=== PATIENT | female | born 1980 | race Caucasian/White ===

== ENCOUNTER 2017-11-02 14:14 | Emergency (ER) | payer OTHER, SELFPAY ==
[2017-11-02 14:14] VITALS: BMI 38.7
[2017-11-02 14:24] VITALS: BP 116/78; PULSE 88; RESP 18; TEMP 98.4; O2SAT 98
--- NOTE | 2017-11-02 14:49 | ED PDOC ---
HPI: General Adult Time Seen by Provider: 11/02/17 14:25 Chief Complaint (Nursing): Weakness/Neurological Deficit Chief Complaint (Provider): Dizziness, weakness, and numbness History Per: Patient History/Exam Limitations: no limitations Onset/Duration Of Symptoms: Days Current Symptoms Are (Timing): Still Present Additional Complaint(s): 37 year old female presents to the emergency department for left arm and face numbness that started on 10/28/2017, while she was cleaning her house. Associated with feeling of weakness on the left side of her neck as well as dizziness. Denies pain, trauma, or shortness of breath. Patient was seen at [facility] in [place], [place] and underwent labs and magnetic resonance imaging (MRI). Patient was told she has disc disease and was given instructions for paresthesias but no medications. She then saw her primary care doctor yesterday, 11/01/2017, who then prescribed her Antivert for her dizziness and advised for a follow-up appointment with a neurologist. Patient presents today for persistent symptoms of dizziness and numbness to her left arm and face. She did not take appropriate dose of Antivert (only half of a pill) because she was afraid she was going to become sleepy and has to take care of her three year old. PMD: Dr. Howe ([place] in [place], [place]) Past Medical History Reviewed: Historical Data, Nursing Documentation, Vital Signs Vital Signs: Last Vital Signs Temp 98.4 F 11/02/17 14:20 Pulse 88 11/02/17 14:20 Resp 18 11/02/17 14:20 BP 116/78 11/02/17 14:20 Pulse Ox 98 11/02/17 16:36 - Medical History PMH: No Chronic Diseases - Surgical History Surgical History: Appendectomy - Family History Family History: States: Unknown Family Hx - Social History Current smoker - smoking cessation education provided: No Alcohol: None Drugs: Denies - Home Medications Home Medications: Ambulatory Orders Medication Instructions Recorded Bacitracin 1 ea TOP TID #0 fp 07/11/14 Ferrous Sulfate [Feosol] 324 mg PO BID #0 ect 07/11/14 Naproxen [Naprosyn] 1 tab PO BID PRN #30 tab 11/02/17 - Allergies Allergies/Adverse Reactions: Allergies Allergy/AdvReac Type Severity Reaction Status Date / Time No Known Allergies Allergy Verified 06/20/14 13:01 Review of Systems ROS Statement: Except As Marked, All Systems Reviewed And Found Negative (As per HPI, otherwise negative) Constitutional: Negative for: Other (Pain or trauma) Respiratory: Negative for: Shortness of Breath Neurological: Positive for: Weakness (Left side of her neck), Numbness (Left arm and face numbness), Dizziness Physical Exam - Reviewed Nursing Documentation Reviewed: Yes Vital Signs Reviewed: Yes - Physical Exam Appears: Positive for: Non-toxic, No Acute Distress Head Exam: Positive for: ATRAUMATIC, NORMOCEPHALIC Skin: Positive for: Warm, Dry Eye Exam: Positive for: EOMI, PERRL ENT: Negative for: Pharyngeal Erythema, Tonsillar Exudate Neck: Positive for: Painless ROM, Supple. Negative for: Pain On Movement Of Neck Cardiovascular/Chest: Positive for: Regular Rate, Rhythm, Chest Non Tender. Negative for: Murmur Respiratory: Positive for: Normal Breath Sounds. Negative for: Respiratory Distress Gastrointestinal/Abdominal: Positive for: Soft. Negative for: Tenderness Back: Positive for: Normal Inspection. Negative for: Decreased ROM Extremity: Positive for: Normal ROM. 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 Strength 5/5 in bilateral upper extremities), Cerebellar Tests ( normal), Gait (normal). Negative for: Aphasia, Facial Droop - ECG ECG Rhythm: Positive for: Normal QRS, Normal ST Segment, Sinus Rhythm (74 bpm), Nonspecific Changes. Negative for: ST/T Changes O2 Sat by Pulse Oximetry: 98 (RA) Pulse Ox Interpretation: Normal Medical Decision Making Medical Decision Making: Time: 1441 Initial Impression: Paresthesias Initial Plan: --EKG --Urine preg --Cyclobenzaprine 10 mg PO --Toradol 30 mg IM --Reevaluation Obtained MRI results from [facility] in [place]. No emergently significant findings on MRI brain and cervical spine. DW pt findings. Time: 1616 --Chest pain FINDINGS: LUNGS: No active pulmonary disease. PLEURA: No significant pleural effusion identified. No pneumothorax appearent. CARDIOVASCULAR: Normal. OSSEOUS STRUCTURES: Minor multilevel degenerative spondylosis of the thoracic spine. VISAULIZED UPPER ABDOMEN: Normal. OTHER FINDINGS: None. Time: 1620 --Patient is stable for discharge and will be sent home with Rx of Naproxen. Clinical Impression: Arm paresthesia, left. Facial paresthesia. Scribe Attestation: Documented by Luci Garcia, acting as a scribe for Susan Shultz MD. Provider Scribe Attestation: All medical record entries made by the Scribe were at my direction and personally dictated by me. I have reviewed the chart and agree that the record accurately reflects my personal performance of the history, physical exam, medical decision making, and the department course for this patient. I have also personally directed, reviewed, and agree with the discharge instructions and disposition. Disposition - Clinical Impression Clinical Impression: Arm paresthesia, left, Facial paresthesia - Patient ED Disposition Is Patient to be Admitted: No Counseled Patient/Family Regarding: Diagnosis, Need For Followup - Disposition Referrals: [facility] [Outside] - 11/09/17 Disposition: Routine/Home Disposition Time: 16:20 Condition: GOOD Additional Instructions: SEAN MEDICAMENTO DIARIO POR SUSAN SEMANA Y VISITA A LA [facility] PROXIMA SEMANA A CHEQAR DE NUEVO Prescriptions: Naproxen [Naprosyn] 1 tab PO BID PRN #30 tab PRN Reason: Pain Instructions: Herniated Disc, Radiculopathy (DC) Forms: [employer] (Uzbek) Print Language: ANGUILLAN
--- NOTE | 2017-11-02 16:18 | RAD ---
HISTORY: Left arm paresthesia. COMPARISON: Comparison chest dated 07/06/2014 TECHNIQUE: Chest PA and lateral FINDINGS: LUNGS: No active pulmonary disease. PLEURA: No significant pleural effusion identified. No pneumothorax apparent. CARDIOVASCULAR: Normal. OSSEOUS STRUCTURES: Minor multilevel degenerative spondylosis of the thoracic spine VISUALIZED UPPER ABDOMEN: Normal. OTHER FINDINGS: None. IMPRESSION: No active disease.
--- NOTE | 2017-11-02 18:50 | CARD ---
APPROVED REPORT EKG Measurement Heart [id number] <Conclusion> Normal sinus rhythm Normal ECG
== END 2017-11-02 16:30 | disposition home or self-care (01) ==
LOC: H.ER 14:14
DX: R20.2 Paresthesia of skin (principal)
CPT/HCPCS: 71046; 81025; 93005; 96372; 99284; J1885

== ENCOUNTER 2018-01-18 22:12 | Emergency (ER) | payer OTHER ==
[2018-01-18 22:12] VITALS: BMI 38.7
[2018-01-18 22:37] VITALS: BP 123/83; PULSE 91; RESP 18; TEMP 98.8; O2SAT 97
--- NOTE | 2018-01-18 23:58 | ED PDOC ---
HPI: Female Pain Time Seen by Provider: 01/18/18 22:40 Chief Complaint (Nursing): Female Genitourinary Chief Complaint (Provider): Dysuria, suprapubic cramping during urination Past Medical History Vital Signs: Last Vital Signs Temp 98.8 F 01/18/18 22:33 Pulse 91 H 01/18/18 22:33 Resp 18 01/18/18 22:33 BP 123/83 01/18/18 22:33 Pulse Ox 97 01/18/18 22:33 - Surgical History Surgical History: Appendectomy - Family History Family History: States: Unknown Family Hx - Home Medications Home Medications: Ambulatory Orders Medication Instructions Recorded Bacitracin 1 ea TOP TID #0 fp 07/11/14 Ferrous Sulfate [Feosol] 324 mg PO BID #0 ect 07/11/14 Naproxen [Naprosyn] 1 tab PO BID PRN #30 tab 11/02/17 Ciprofloxacin [Cipro] 500 mg PO BID #10 tab 01/18/18 - Allergies Allergies/Adverse Reactions: Allergies Allergy/AdvReac Type Severity Reaction Status Date / Time No Known Allergies Allergy Verified 01/18/18 22:33 - ECG O2 Sat by Pulse Oximetry: 97 Disposition - Clinical Impression Clinical Impression: UTI (urinary tract infection) - Patient ED Disposition Is Patient to be Admitted: No Counseled Patient/Family Regarding: Diagnosis, Need For Followup, Rx Given - Disposition Disposition: Routine/Home Disposition Time: 23:56 Condition: GOOD Prescriptions: Ciprofloxacin [Cipro] 500 mg PO BID #10 tab Instructions: Urinary Tract Infection, Adult (DC) Print Language: CYPRIOT
--- NOTE | 2018-01-19 19:16 | ED PDOC ---
HPI: Female Pain Time Seen by Provider: 01/18/18 22:40 Chief Complaint (Nursing): Female Genitourinary Chief Complaint (Provider): Dysuria, suprapubic cramping during urination History Per: Patient History/Exam Limitations: no limitations Onset/Duration Of Symptoms: Days (Began last night ) Current Symptoms Are (Timing): Still Present Severity: Mild Pain Scale Rating Of: 4 Quality Of Discomfort: Cramping Additional Complaint(s): 37 yo female with no medical problems presents with burning on urination and cramping sensation in the suprapubic area when urinating since last night. PT states she also thinks there is some blood in her urine. Pt denies fever/ chills. No N/V. Pt without back pain. No vaginal discharge. Past Medical History Reviewed: Historical Data, Nursing Documentation, Vital Signs Vital Signs: Last Vital Signs Temp 98.8 F 01/18/18 22:33 Pulse 91 H 01/18/18 22:33 Resp 18 01/18/18 22:33 BP 123/83 01/18/18 22:33 Pulse Ox 97 01/18/18 23:58 - Medical History PMH: No Chronic Diseases - Surgical History Surgical History: Appendectomy - Family History Family History: States: Unknown Family Hx - Living Arrangements Living Arrangements: With Family - Social History Current smoker - smoking cessation education provided: No Alcohol: None Drugs: Denies - Home Medications Home Medications: Ambulatory Orders Medication Instructions Recorded Bacitracin 1 ea TOP TID #0 fp 07/11/14 Ferrous Sulfate [Feosol] 324 mg PO BID #0 ect 07/11/14 Naproxen [Naprosyn] 1 tab PO BID PRN #30 tab 11/02/17 Ciprofloxacin [Cipro] 500 mg PO BID #10 tab 01/18/18 - Allergies Allergies/Adverse Reactions: Allergies Allergy/AdvReac Type Severity Reaction Status Date / Time No Known Allergies Allergy Verified 01/18/18 22:33 Review of Systems ROS Statement: Except As Marked, All Systems Reviewed And Found Negative Constitutional: Negative for: Fever, Chills Genitourinary Female: Positive for: Dysuria, Hematuria, Pelvic Pain Physical Exam - Reviewed Nursing Documentation Reviewed: Yes Vital Signs Reviewed: Yes - Physical Exam Appears: Positive for: Well, Non-toxic, No Acute Distress Head Exam: Positive for: ATRAUMATIC, NORMAL INSPECTION, NORMOCEPHALIC Skin: Positive for: Normal Color, Warm, DRY Eye Exam: Positive for: Normal appearance ENT: Positive for: Normal ENT Inspection Neck: Positive for: Normal, Painless ROM Cardiovascular/Chest: Positive for: Regular Rate, Rhythm Respiratory: Positive for: CNT, Normal Breath Sounds Gastrointestinal/Abdominal: Positive for: Normal Exam, Soft. Negative for: Tenderness Back: Positive for: Normal Inspection Extremity: Positive for: Normal ROM Neurologic/Psych: Positive for: Alert, Oriented - ECG O2 Sat by Pulse Oximetry: 97 Medical Decision Making Medical Decision Making: (+) leuks and blood in urine. Disposition - Clinical Impression Clinical Impression: UTI (urinary tract infection) - Disposition Disposition: Routine/Home Disposition Time: 23:56 Condition: GOOD Prescriptions: Ciprofloxacin [Cipro] 500 mg PO BID #10 tab Instructions: Urinary Tract Infection, Adult (DC) Forms: [facility] (Romansh) Print Language: AMERICAN
== END 2018-01-19 00:02 | disposition home or self-care (01) ==
LOC: H.ER 22:12
DX: N39.0 Urinary tract infection, site not specified (principal)

== ENCOUNTER 2018-02-17 23:15 | Emergency (ER) | payer OTHER ==
[2018-02-17 23:15] VITALS: BMI 38.7
[2018-02-17 23:37] VITALS: TEMP 98.6; O2SAT 100
[2018-02-17] MEDS ORDERED: Simethicone 80 mg Chewtab PO STA (23:57)
--- NOTE | 2018-02-18 00:24 | ED PDOC ---
HPI: Abdomen Time Seen by Provider: 02/17/18 23:49 Chief Complaint (Nursing): Abdominal Pain Chief Complaint (Provider): Abdominal Pain History Per: Patient History/Exam Limitations: no limitations Onset/Duration Of Symptoms: Days (x3) Outside of [place] travel?: No Current Symptoms Are (Timing): Still Present Context: Other (Menses) Location Of Pain/Discomfort: Diffuse Quality Of Discomfort: Gas. denies: Burning Associated Symptoms: denies: Fever, Chills, Nausea, Vomiting, Urinary Symptoms Exacerbating Factors: Food Additional Complaint(s): 37 year old female presents to ED with complaints of abdominal pain and bloating x3 days and has no past medical history. Patient notes that she wants to pass gas but is unable to. Notes that pain is diffuse and worsens with eating. (-) urinary symptoms, vaginal bleed/discharge, fever, chills, nausea, or vomiting. PCP: None Past Medical History Reviewed: Historical Data, Nursing Documentation, Vital Signs Vital Signs: Last Vital Signs Temp 98.6 F 02/17/18 23:35 Pulse 83 02/18/18 02:42 Resp 20 02/18/18 02:42 BP 114/70 02/18/18 02:42 Pulse Ox 100 02/18/18 02:42 - Medical History PMH: No Chronic Diseases - Surgical History Surgical History: Appendectomy, - Family History Family History: States: Unknown Family Hx - Social History Drugs: Denies - Home Medications Home Medications: Ambulatory Orders Medication Instructions Recorded Bacitracin 1 ea TOP TID #0 fp 07/11/14 Ferrous Sulfate [Feosol] 324 mg PO BID #0 ect 07/11/14 Naproxen [Naprosyn] 1 tab PO BID PRN #30 tab 11/02/17 Ciprofloxacin [Cipro] 500 mg PO BID #10 tab 01/18/18 Nitrofurantoin Macrocrystals 100 mg PO BID #14 cap 01/21/18 [Macrobid] Docusate Sodium [Dulcolax Stool 100 mg PO BID #12 capsule 02/18/18 Softener] - Allergies Allergies/Adverse Reactions: Allergies Allergy/AdvReac Type Severity Reaction Status Date / Time No Known Allergies Allergy Verified 02/17/18 23:31 Review of Systems ROS Statement: Except As Marked, All Systems Reviewed And Found Negative Constitutional: Negative for: Fever, Chills Gastrointestinal: Positive for: Abdominal Pain. Negative for: Nausea, Vomiting Genitourinary Female: Negative for: Dysuria, Frequency, Incontinence, Hematuria , Vaginal Discharge, Vaginal Bleeding Physical Exam - Reviewed Nursing Documentation Reviewed: Yes Vital Signs Reviewed: Yes - Physical Exam Appears: Positive for: Non-toxic, No Acute Distress Skin: Positive for: Normal Color, Warm, Dry Neck: Positive for: Normal, Painless ROM, Supple Cardiovascular/Chest: Positive for: Regular Rate, Rhythm. Negative for: Murmur Respiratory: Positive for: Normal Breath Sounds. Negative for: Respiratory Distress Gastrointestinal/Abdominal: Positive for: Soft, Tenderness (minimal TTP diffusely). Negative for: Normal Exam, Mass, Guarding, Rebound Extremity: Positive for: Normal ROM. Negative for: Deformity Neurologic/Psych: Positive for: Alert, Oriented. Negative for: Motor/Sensory Deficits - ECG O2 Sat by Pulse Oximetry: 100 (RA) Pulse Ox Interpretation: Normal Medical Decision Making Medical Decision Makin Initial impression: likely gas, less likely SBO v colitis v diverticulitis Initial plan: Patient is well-appearing and has normal vital signs. Will do XR obstructive series to check bowel gas patterns and will provide medication for symptom relief. * UPreg * UDip * XR OBSTRUCTIVE SERIES * Simethicone 80mg PO * Re-eval 0029 XR FINDINGS: Lungs: Unremarkable. No consolidation. Pleural space: Unremarkable. No pneumothorax. Heart: Unremarkable. No cardiomegaly. Mediastinum: Unremarkable. Intraperitoneal space: No free air. Gastrointestinal tract: Diverticulosis. No dilation. Organs: Unremarkable. Bones/joints: Unremarkable. Soft tissues: Right lower quadrant postoperative surgical clips. IMPRESSION: No acute findings. 0143 Upon re-evaluation, patient notes continuation of symptoms. Will provide medication for stool. * Lactulose 20mg PO * Phosphate Enema 135 mL ND * Re-eval 230 PAtient feeling much better after bowel movement. Advised to followup with PMD. Return precautions given. Scribe Attestation: Documented by Diana Arredondo acting as a scribe for Moiz Olivera MD. Scribstephen Attestation: All medical record entries made by the Scribe were at my direction and personally dictated by me. I have reviewed the chart and agree that the record accurately reflects my personal performance of the history, physical exam, medical decision making, and the department course for this patient. I have also personally directed, reviewed, and agree with the discharge instructions and disposition. Disposition - Clinical Impression Clinical Impression: Constipation - Disposition Referrals: [facility] [Provider Group] Disposition: Routine/Home Disposition Time: 02:47 Condition: IMPROVED Prescriptions: Docusate Sodium [Dulcolax Stool Softener] 100 mg PO BID #12 capsule Instructions: Constipation in Adults Forms: [facility] (Bulgarian) Print Language: SAMI
--- NOTE | 2018-02-18 00:29 | RAD ---
EXAM: XR Abdomen 2 Views With XR Chest CLINICAL HISTORY: 37 years old, female; Pain; Abdominal pain; Generalized; Additional info: Diffuse abd pain TECHNIQUE: Frontal view of the chest, frontal view of the abdomen/pelvis and upright or decubitus view of the abdomen. COMPARISON: CR - CHEST TWO VIEWS (PA/LAT) 2017-11-02 16:02 FINDINGS: Lungs: Unremarkable. No consolidation. Pleural space: Unremarkable. No pneumothorax. Heart: Unremarkable. No cardiomegaly. Mediastinum: Unremarkable. Intraperitoneal space: No free air. Gastrointestinal tract: Diverticulosis. No dilation. Organs: Unremarkable. Bones/joints: Unremarkable. Soft tissues: Right lower quadrant postoperative surgical clips. IMPRESSION: No acute findings.
[2018-02-18 02:42] VITALS: BP 114/70; PULSE 83; RESP 20
== END 2018-02-18 03:07 | disposition home or self-care (01) ==
LOC: H.ER 23:15
DX: K59.00 Constipation, unspecified (principal)

== ENCOUNTER 2018-11-28 21:50 | Emergency (ER) | payer SELFPAY ==
[2018-11-28 21:51] VITALS: BMI 38.7
[2018-11-28 22:47] VITALS: RESP 18
[2018-11-29] MEDS ORDERED: Sodium Chloride 0.9% 1,000 ML IV STA (00:02)
--- NOTE | 2018-11-29 00:07 | ED PDOC ---
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 Patient states pain also behind left eye and feels "swollen". Associated vomiting x 3. Patient also reports associated left-sided neck pain radiating to left arm. Patient states she had similar symptoms less than one year ago and told it was "stress". Patient took Naproxen this afternoon whcih helped with symptoms, but then they returned. Denies fever, dizziness, extremity weakness, vision changes, chest pain, shortness of breath, palpitations, abdominal pain, leg p ain/swelling. Past Medical History Reviewed: Historical Data, Nursing Documentation, Vital Signs Vital Signs: Last Vital Signs Temp 98.5 F 11/28/18 22:39 Pulse 80 11/28/18 22:39 Resp 18 11/28/18 22:39 BP 138/88 11/28/18 22:39 Pulse Ox 98 11/28/18 22:39 - Medical History PMH: No Chronic Diseases - Surgical History Surgical History: Appendectomy, - Family History Family History: States: Unknown Family Hx - Living Arrangements Living Arrangements: With Family - Home Medications Home Medications: Ambulatory Orders Medication Instructions Recorded Bacitracin 1 ea TOP TID #0 fp 07/11/14 Ferrous Sulfate [Feosol] 324 mg PO BID #0 ect 07/11/14 Naproxen [Naprosyn] 1 tab PO BID PRN #30 tab 11/02/17 Ciprofloxacin [Cipro] 500 mg PO BID #10 tab 01/18/18 Nitrofurantoin Macrocrystals 100 mg PO BID #14 cap 01/21/18 [Macrobid] Docusate Sodium [Dulcolax Stool 100 mg PO BID #12 capsule 02/18/18 Softener] Cyclobenzaprine [Cyclobenzaprine 10 mg PO BID PRN #14 tab 11/29/18 HCl] Naproxen [Naprosyn] 500 mg PO Q12 PRN #20 tablet 11/29/18 - Allergies Allergies/Adverse Reactions: Allergies Allergy/AdvReac Type Severity Reaction Status Date / Time No Known Allergies Allergy Verified 11/28/18 22:39 Review of Systems ROS Statement: Except As Marked, All Systems Reviewed And Found Negative Musculoskeletal: Positive for: Neck Pain, Shoulder Pain Neurological: Positive for: Headache Physical Exam - Reviewed Nursing Documentation Reviewed: Yes Vital Signs Reviewed: Yes - Physical Exam Appears: Positive for: Well, Non-toxic, No Acute Distress Head Exam: Positive for: ATRAUMATIC, NORMAL INSPECTION, NORMOCEPHALIC Skin: Positive for: Normal Color Eye Exam: Positive for: Normal appearance, EOMI, PERRL ENT: Positive for: Normal ENT Inspection Cardiovascular/Chest: Positive for: Regular Rate, Rhythm Respiratory: Positive for: Normal Breath Sounds Pulses-Radial (L): 2+ Pulses-Radial (R): 2+ Gastrointestinal/Abdominal: Positive for: Normal Exam Back: Positive for: Muscle Spasm (left cspine paravertebral tenderness, left tr apezius tenderness, left posterior shoulder tenderness). Negative for: Vertebral Tenderness Extremity: Positive for: Normal ROM Neurological/Psych: Positive for: Awake, Alert, Oriented (x3) - Laboratory Results Result Diagrams: 11/29/18 00:46 11/29/18 00:46 - ECG O2 Sat by Pulse Oximetry: 98 - Progress ED Course And Treament: -cbc -cmp -CT head -CT cspine -IV toradol -PO flexeril -IV NS bolus -ekg CT SCAN OF THE BRAIN WITHOUT IV CONTRAST CLINICAL INDICATION: Left-sided neck pain. TECHNIQUE: Axial and reformatted sagittal and coronal images of the brain obtained without IV contrast administration. Normal size of the ventricles and extra-axial spaces for the patient's age. Normal white matter tracts of the supratentorial brain. Normal basal ganglia and thalami. Normal brainstem. Normal cerebellum. There is no demonstrated extra-axial, intraparenchymal, or intraventricular hemorrhage. There are no findings of an acute ischemic infarction. Normal calvarium. There is no demonstrated fracture. Normal soft tissue structures. Normal visualized paranasal sinuses. IMPRESSION: Normal unenhanced CT scan of the brain CT scan of the cervical spine without contrast. Indication: Pain. Technique: Axial CT scan images without contrast. Reformatted coronal and sagittal images. Findings: Normal craniovertebral junction. Normal anterior atlantoaxial articulation. Normal odontoid process. Normal cervical lordosis. Normal vertebral bodies and posterior osseous elements. C2-3: Normal endplates. Normal disc height and morphology. Normal bilateral uncovertebral and apophyseal joints. Normal central canal and intervertebral neuroforamina. C3-4: Normal endplates. Normal disc height and morphology. Normal bilateral uncovertebral and apophyseal joints. Normal central canal and intervertebral neuroforamina. C4-5: Normal endplates. Normal disc height and morphology. Normal bilateral uncovertebral and apophyseal joints. Normal central canal and intervertebral neuroforamina. C5-6: Normal endplates. Normal disc height and morphology. Normal bilateral uncovertebral and apophyseal joints. Normal central canal and intervertebral neuroforamina. C6-7: Normal endplates. Normal disc height and morphology. Normal bilateral uncovertebral and apophyseal joints. Normal central canal and intervertebral n euroforamina. C7-T1: Normal endplates. Normal disc height and morphology. Normal bilateral uncovertebral and apophyseal joints. Normal central canal and intervertebral neuroforamina. Normal visualized soft tissue structures. IMPRESSION: Normal unenhanced CT examination of the cervical spine. Translation via Leeann Soto (senior cytogenetic technologist/certified oceanographer geological) On re-eval, patient states she is feeling better Patient educated on findings, discharged with rx Naproxen, Flexeril Advised follow up PMD within 2-3 days Warm compresses Return precautions given Disposition - Clinical Impression Clinical Impression: Headache, Neck muscle strain - Patient ED Disposition Is Patient to be Admitted: No Counseled Patient/Family Regarding: Studies Performed, Diagnosis, Need For Followup, Rx Given - Disposition Disposition: Routine/Home Disposition Time: 03:02 Condition: IMPROVED Prescriptions: Cyclobenzaprine [Cyclobenzaprine HCl] 10 mg PO BID PRN #14 tab PRN Reason: Muscle Spasm Naproxen [Naprosyn] 500 mg PO Q12 PRN #20 tablet PRN Reason: Pain, Moderate (4-7) Instructions: Cervical Muscle Strain, Headache, Adult Forms: [employer] (Divehi) Print Language: DOMINICAN
[2018-11-29 01:04] LABS: BASO # 0.1 K/uL (0.0-0.2); BASO % 0.6 % (0.0-2.0); EOS # 0.1 K/uL (0.0-0.7); EOS % 0.8 % (0.0-4.0); HEMOGLOBIN 13.3 g/dL (12.0-16.0); LYMPH # 3.4 K/uL (1.0-4.3); LYMPH % 28.5 % (20.0-40.0); MEAN CORPUSCULAR HEMOGLOBIN 27.4 pg (27.0-31.0); MEAN CORPUSCULAR HGB CONC 32.2 g/dL (33.0-37.0); MEAN PLATELET VOLUME 8.3 fl (7.2-11.7); MONO # 0.5 K/uL (0.0-0.8); MONO % 4.5 % (0.0-10.0); NEUT # 7.7 K/uL (1.8-7.0); NEUT % 65.6 % (50.0-75.0); RBC 4.86 Mil/uL (3.80-5.20); WHITE BLOOD COUNT 11.8 K/uL (4.8-10.8)
[2018-11-29 01:11] LABS: BLOOD UREA NITROGEN 10 mg/dl (7-17); CALCIUM 9.2 mg/dL (8.4-10.2); GFR NON-AFRICAN AMERICAN > 60
[2018-11-29 01:13] LABS: ALB/GLOB RATIO 1.1 (1.0-2.1); ALBUMIN 4.5 g/dL (3.5-5.0); ALT/SGPT 18 U/L (9-52); AST/SGOT 39 U/L (14-36)
[2018-11-29 03:09] VITALS: BP 118/69; PULSE 73; TEMP 98; O2SAT 99
--- NOTE | 2018-11-29 09:03 | CARD ---
APPROVED REPORT Date of service: 11/29/2018 EKG Measurement Heart [id number] <Conclusion> Normal sinus rhythm Normal ECG
--- NOTE | 2018-11-29 11:02 | CT ---
Date of service: 11/29/2018 PROCEDURE: CT HEAD WITHOUT CONTRAST. HISTORY: left-sided headache COMPARISON: None available. TECHNIQUE: Axial computed tomography images were obtained through the head/brain without intravenous contrast. Supplemental Coronal and Sagittal projections created and reviewed. Radiation dose: Total exam DLP = <inf_radiation_dlp> mGy-cm. This CT exam was performed using one or more of the following dose reduction techniques: Automated exposure control, adjustment of the mA and/or kV according to patient size, and/or use of iterative reconstruction technique. FINDINGS: HEMORRHAGE: No intracranial hemorrhage. BRAIN: No mass effect or edema. No atrophy or chronic microvascular ischemic changes. VENTRICLES: Unremarkable. No hydrocephalus. CALVARIUM: Unremarkable. PARANASAL SINUSES: Unremarkable as visualized. No significant inflammatory changes. MASTOID AIR CELLS: Unremarkable as visualized. No inflammatory changes. OTHER FINDINGS: None. IMPRESSION: No acute intracranial abnormalities. No significant findings to account for the clinical presentation. Concordant results (preliminary interpretation) provided by [email or web address]. Procedure Completed: 01:04. Preliminary Report: Interpreted and electronically signed: 02:20. Final Interpretation: 10:59.
--- NOTE | 2018-11-29 11:04 | CT ---
Date of service: 11/29/2018 PROCEDURE: CT Cervical Spine without contrast HISTORY: left-sided neck pain COMPARISON: None available. TECHNIQUE: Axial computed tomography images were obtained of the cervical spine without the use of intravenous contrast. Coronal and sagittal reformatted images were created and reviewed. Radiation dose: Total exam DLP = 348.67 mGy-cm. This CT exam was performed using one or more of the following dose reduction techniques: Automated exposure control, adjustment of the mA and/or kV according to patient size, and/or use of iterative reconstruction technique. FINDINGS: VERTEBRAE: No fracture. Normal alignment. No destructive bony lesion. DISCS/SPINAL CANAL/NEURAL FORAMINA: No significant central canal or neural foraminal stenosis. Discs heights are grossly preserved. PARASPINAL SOFT TISSUES: Unremarkable. OTHER FINDINGS: None. IMPRESSION: Unremarkable CT of the cervical spine. Concordant results (preliminary interpretation) provided by [facility]. Procedure Completed: :08. Preliminary Report: Interpreted and electronically signed: 02:22. Final Interpretation: 11:00.
== END 2018-11-29 03:30 | disposition home or self-care (01) ==
LOC: H.ER 21:50
DX: R51 Headache (principal); M54.2 Cervicalgia
CPT/HCPCS: 70450; 72125; 80053; 81025; 82948; 85025; 93005; 96360; 99285; J1885; J7030